=== PATIENT | female | born 1950 | race Caucasian/White ===

== ENCOUNTER 2018-05-08 05:59 | Day surgery (SDC) | payer MEDICARE ==
[~2018-05-08 05:59] MED LIST: AMLODIPINE5 MG PO; DICLOFENAC SODIUM1 %; LEXAPRO20 MG PO; MELOXICAM15 MG PO; VYVANSE50 MG PO
[2018-05-08 07:36] VITALS: BP 130/66
== END 2018-05-08 08:15 | disposition home or self-care (01) ==
LOC: ORM 05:59
PROVIDERS: ATTEND Anesthesiology Pain Medicine
PROC: 3E0U33Z Introduction of Anti-inflammatory into Joints, Percutaneous Approach (ICD-10-PCS; principal; 2018-05-08)
PROC: 3E0U3BZ Introduction of Anesthetic Agent into Joints, Percutaneous Approach (ICD-10-PCS; 2018-05-08)
DX: M46.1 Sacroiliitis, not elsewhere classified (principal); M54.5 Low back pain; M79.605 Pain in left leg; M79.604 Pain in right leg

== ENCOUNTER 2018-05-22 06:08 | Day surgery (SDC) | payer MEDICARE ==
[~2018-05-22] VITALS: Ht 162.6 cm; Wt 77.1 kg
[2018-05-22 08:09] VITALS: BP 121/58
[2018-05-22] MEDS ORDERED: TRAMADOL HCL50 MG PO (08:32)
== END 2018-05-22 08:42 | disposition home or self-care (01) ==
LOC: ORM 06:08
PROVIDERS: ATTEND Anesthesiology Pain Medicine
PROC: 3E0U33Z Introduction of Anti-inflammatory into Joints, Percutaneous Approach (ICD-10-PCS; principal; 2018-05-22)
PROC: 3E0U3BZ Introduction of Anesthetic Agent into Joints, Percutaneous Approach (ICD-10-PCS; 2018-05-22)
DX: M46.1 Sacroiliitis, not elsewhere classified (principal)